=== PATIENT | male | born 1985 | race Caucasian/White ===

== ENCOUNTER 2018-09-01 09:43 | Observation (INO) | payer OTHER ==
[2018-09-01 11:10] LABS: ADD MAN DIFF? NO
[2018-09-01 11:26] LABS: BASOPHIL # 0.1 10^3/ul (0.0-0.1); BASOPHILS % 0.4 % (0.0-2.0); EOSINOPHILS # 0.2 10^3/ul (0.0-0.5); EOSINOPHILS % 1.4 % (0.0-7.0); HEMATOCRIT 40.7 % (42.0-52.0); HEMOGLOBIN 12.8 g/dl (14.0-18.0); LYMPHOCYTES # 2.6 10^3/ul (0.8-2.9); LYMPHOCYTES % 21.3 % (15.0-51.0); MEAN CORPUSCULAR HEMOGLOBIN 28.3 pg (29.0-33.0); MEAN CORPUSCULAR HGB CONC 31.4 g/dl (32.0-37.0); MEAN CORPUSCULAR VOLUME 89.8 fl (82.0-101.0); MEAN PLATELET VOLUME 10.2 fl (7.4-10.4); MONOCYTES % 8.6 % (0.0-11.0); NEUTROPHIL # 8.1 10^3/ul (1.6-7.5); NEUTROPHILS % 67.7 % (39.0-77.0); PLATELET COUNT 308 10^3/UL (140-415); RED BLOOD COUNT 4.53 10^6/ul (4.70-6.10)
[2018-09-01 11:37] LABS: INR 1.02; PROTIME 13.5 Sec (11.9-14.9); PT RATIO 1.1
[2018-09-01 11:39] LABS: ALANINE AMINOTRANSFERASE 70 IU/L (13-69); ALBUMIN 4.7 g/dl (3.3-4.9); ALBUMIN/GLOBULIN RATIO 1.23; ALKALINE PHOSPHATASE 113 IU/L (42-121); ANION GAP 16 (5-13); ASPARTATE AMINO TRANSFERASE 87 IU/L (15-46); BILIRUBIN,INDIRECT 0.7 mg/dl (0-1.1); BILIRUBIN,TOTAL 0.7 mg/dl (0.2-1.3); BLOOD UREA NITROGEN 8 mg/dl (7-20); CALCIUM 10.1 mg/dl (8.4-10.2); CARBON DIOXIDE 25 mmol/L (21-31); CHLORIDE 102 mmol/L (97-110); CREATININE 0.16 mg/dl (0.61-1.24); Estimated GFR > 60 mL/min (>60); GLUCOSE 117 mg/dl (70-220); LIPASE 57 U/L (23-300); POTASSIUM 3.2 mmol/L (3.5-5.1); SODIUM 143 mmol/L (135-144); TOTAL PROTEIN 8.5 g/dl (6.1-8.1)
[2018-09-01 11:40] LABS: LACTIC ACID 3.7 mmol/L (0.5-2.0)
[2018-09-01 11:50] LABS: TROPONIN-I < 0.012 ng/ml (0.000-0.120)
[2018-09-01] MEDS: SODIUM CHLORIDE 0.9% 1L BAG IV* (11:56)
[2018-09-01] MEDS: PIPER-TAZO 3.375 GM IV (PMX) 100 ML IVPB ×3 (11:59→22:57)
[2018-09-01] MEDS ORDERED: NACL 0.9% 3 ML SYG IV (12:30)
[2018-09-01] MEDS ORDERED: ACETAMINOPHEN 650MG/20.3ML CUP GTB (12:30)
[2018-09-01] MEDS ORDERED: clonAZEPAM 0.5 MG TAB GTB (12:30)
[2018-09-01] MEDS: morphine 4 MG/ML VIAL IV (12:32)
[2018-09-01] MEDS: ONDANSETRON 4 MG INJ IV (12:32)
[2018-09-01] MEDS: LACTOBACILLUS RHAMNOSUS CAP PO ×2 (13:00→20:27)
[2018-09-01] MEDS: POTASSIUM CHLORIDE (SR) 20 MEQ TAB PO (13:38)
[2018-09-01] MEDS: DIGOXIN 0.25 MG TAB GTB (13:39)
[2018-09-01] MEDS: DIPHENHYDRAMINE 50 MG CAP GTB (13:40)
[2018-09-01] MEDS: METOPROLOL 50 MG TAB GTB (13:40)
[2018-09-01 13:47] LABS: LACTIC ACID 1.2 mmol/L (0.5-2.0)
[2018-09-01] MEDS ORDERED: ALBUTEROL/IPRATROPIUM (NEB) 3 ML AMP INH (14:00)
[2018-09-01] MEDS: BACLOFEN 10 MG TAB GTB ×2 (14:14→22:57)
[2018-09-01] MEDS: DILTIAZEM 30 MG TAB GTB ×2 (14:14→22:57)
[2018-09-01] MEDS ORDERED: traMADol 50 MG TAB GTB (17:00)
[2018-09-01] MEDS: IPRATROPIUM (HFA) 12.9 GM INHALER INH (20:00)
[2018-09-01] MEDS: ALBUTEROL HFA 8 GM INHALER INH (20:00)
[2018-09-01] MEDS: METOCLOPRAMIDE (1 MG/ML) 10 ML CUP GTB (20:26)
[2018-09-01] MEDS: GABAPENTIN 300 MG CAP PO (20:27)
[2018-09-01] MEDS: SUCRALFATE (100 MG/ML) 10ML CUP GTB (20:27)
[2018-09-01] MEDS: D5W-0.45 NACL + KCL 20 MEQ 1,000 ML IV (20:27)
[2018-09-01] MEDS: morphine 2 MG INJ IV (20:41)
[2018-09-01 21:07] LABS: LACTIC ACID 1.4 mmol/L (0.5-2.0)
[2018-09-01 23:14] LABS: LACTIC ACID 1.2 mmol/L (0.5-2.0)
[2018-09-02] MEDS: SUCRALFATE (100 MG/ML) 10ML CUP GTB ×4 (00:17→17:26)
[2018-09-02] MEDS: METOCLOPRAMIDE (1 MG/ML) 10 ML CUP GTB ×4 (00:17→17:26)
[2018-09-02] MEDS: METOPROLOL 50 MG TAB GTB ×2 (00:18→11:36)
[2018-09-02] MEDS: IPRATROPIUM (HFA) 12.9 GM INHALER INH ×4 (01:12→19:31)
[2018-09-02] MEDS: ALBUTEROL HFA 8 GM INHALER INH ×4 (01:12→19:31)
[2018-09-02] MEDS: morphine 2 MG INJ IV ×3 (02:56→20:35)
[2018-09-02] MEDS: BACLOFEN 10 MG TAB GTB ×3 (05:32→22:04)
[2018-09-02] MEDS: PIPER-TAZO 3.375 GM IV (PMX) 100 ML IVPB ×3 (05:32→22:05)
[2018-09-02] MEDS: DILTIAZEM 30 MG TAB GTB ×3 (05:34→22:04)
[2018-09-02 06:54] LABS: ADD MAN DIFF? NO
[2018-09-02 06:58] LABS: WHITE BLOOD COUNT 8.7 10^3/ul (4.8-10.8)
[2018-09-02 06:58] LABS: BASOPHILS % 0.5 % (0.0-2.0); EOSINOPHILS # 0.2 10^3/ul (0.0-0.5); EOSINOPHILS % 2.6 % (0.0-7.0); HEMATOCRIT 33.5 % (42.0-52.0); HEMOGLOBIN 10.5 g/dl (14.0-18.0); LYMPHOCYTES # 1.2 10^3/ul (0.8-2.9); LYMPHOCYTES % 13.9 % (15.0-51.0); MEAN CORPUSCULAR HEMOGLOBIN 28.5 pg (29.0-33.0); MEAN CORPUSCULAR HGB CONC 31.3 g/dl (32.0-37.0); MEAN PLATELET VOLUME 10.6 fl (7.4-10.4); MONOCYTE # 0.9 10^3/ul (0.3-0.9); MONOCYTES % 9.8 % (0.0-11.0); NEUTROPHIL # 6.3 10^3/ul (1.6-7.5); NEUTROPHILS % 72.7 % (39.0-77.0); PLATELET COUNT 264 10^3/UL (140-415); RED BLOOD COUNT 3.68 10^6/ul (4.70-6.10)
[2018-09-02 07:29] LABS: ALANINE AMINOTRANSFERASE 62 IU/L (13-69); ALBUMIN/GLOBULIN RATIO 1.17; ALKALINE PHOSPHATASE 94 IU/L (42-121); ANION GAP 12 (5-13); ASPARTATE AMINO TRANSFERASE 68 IU/L (15-46); BILIRUBIN,INDIRECT 0.8 mg/dl (0-1.1); BILIRUBIN,TOTAL 0.8 mg/dl (0.2-1.3); BLOOD UREA NITROGEN 8 mg/dl (7-20); CALCIUM 8.9 mg/dl (8.4-10.2); CARBON DIOXIDE 22 mmol/L (21-31); CHLORIDE 108 mmol/L (97-110); GLUCOSE 102 mg/dl (70-220); POTASSIUM 3.4 mmol/L (3.5-5.1); SODIUM 142 mmol/L (135-144); TOTAL PROTEIN 7.4 g/dl (6.1-8.1)
[2018-09-02 07:38] LABS: CREATININE < 0.15 mg/dl (0.61-1.24); Estimated GFR > 60 mL/min (>60)
[2018-09-02] MEDS: POTASSIUM CHLORIDE (SR) 20 MEQ TAB PO ×2 (08:31→14:50)
[2018-09-02] MEDS: MAGNESIUM OXIDE 400 MG TAB GTB (08:31)
[2018-09-02] MEDS: LACTOBACILLUS RHAMNOSUS CAP PO ×3 (08:31→20:35)
[2018-09-02] MEDS: LORATADINE 10 MG TAB GTB (08:31)
[2018-09-02] MEDS: GABAPENTIN 400 MG CAP GTB (08:31)
[2018-09-02] MEDS: DIGOXIN 0.25 MG TAB GTB (12:36)
[2018-09-02] MEDS: D5W-0.45 NACL + KCL 20 MEQ 1,000 ML IV (14:47)
[2018-09-02] MEDS: GABAPENTIN 300 MG CAP PO (20:35)
[2018-09-03] MEDS: SUCRALFATE (100 MG/ML) 10ML CUP GTB ×2 (00:18→05:33)
[2018-09-03] MEDS: METOCLOPRAMIDE (1 MG/ML) 10 ML CUP GTB ×2 (00:18→05:31)
[2018-09-03] MEDS: METOPROLOL 50 MG TAB GTB (00:19)
[2018-09-03] MEDS: ALBUTEROL HFA 8 GM INHALER INH (01:39)
[2018-09-03] MEDS: IPRATROPIUM (HFA) 12.9 GM INHALER INH (01:39)
[2018-09-03] MEDS: D5W-0.45 NACL + KCL 20 MEQ 1,000 ML IV (02:20)
[2018-09-03] MEDS: morphine 2 MG INJ IV (02:26)
[2018-09-03] MEDS: BACLOFEN 10 MG TAB GTB (05:38)
[2018-09-03] MEDS: DILTIAZEM 30 MG TAB GTB (05:39)
== END 2018-09-03 08:30 ==
LOC: 6WM 18:52 → E/R 09:43 → 6WM 12:21
DX: G71.01 Duchenne or Becker muscular dystrophy (principal); E87.6 Hypokalemia; K94.09 Other complications of colostomy; E87.2 Acidosis; D72.829 Elevated white blood cell count, unspecified; G82.20 Paraplegia, unspecified; J96.10 Chronic respiratory failure, unspecified whether with hypoxia or hypercapnia
CPT/HCPCS: 36415; 71045; 74176; 80053; 83605; 83690; 83735; 84484; 85025; 85610; 87040-91; 87081; 93005; 94002; 94003; 94640; 96374; 97167; 99217; 99285-25; G0378